=== PATIENT | female | born 1975 | race Caucasian/White ===

== ENCOUNTER 2016-12-06 20:54 | Emergency (ER) | payer SELFPAY | END 2016-12-07 00:29 | disposition home or self-care (01) | LOC: FER 20:54 | DX: J02.9 Acute pharyngitis, unspecified (principal); B37.0 Candidal stomatitis; K21.9 Gastro-esophageal reflux disease without esophagitis; F17.210 Nicotine dependence, cigarettes, uncomplicated; Z88.2 Allergy status to sulfonamides; Z88.8 Allergy status to other drugs, medicaments and biological substances; Z79.899 Other long term (current) drug therapy | CPT/HCPCS: J0561 ==

== ENCOUNTER → 2020-09-23 | Day surgery (SDC) | payer OTHER ==
[~2020-09-23] MED LIST: ALL DAY ALLERGY10 MG PO; AUGMENTIN 875-1 EACH PO; METFORMIN HCL1000 MG PO; METFORMIN HCL500 MG PO; PRILOSEC20 MG PO; SYNTHROID25 MCG PO; VITAMIN D350 MCG PO
[2020-09-23 09:23] LABS: HCG (URINE) SCREEN NEGATIVE (NEGATIVE)
[2020-09-23 09:34] LABS: HCT 40.5 % (37.0-47.0); MCH 30.9 pg (25.0-31.0); MCHC 34.6 g/dL (32.0-36.0); MCV 89.4 fL (78.0-100.0); RBC 4.53 M/uL (4.20-5.40); RDW 13.5 % (11.5-14.0); WBC 6.5 K/uL (4.0-10.5)
[2020-09-23 10:00] LABS: BUN/CREAT RATIO (CALC) 24.5 RATIO; CREATININE 0.53 mg/dL (0.51-0.95); POTASSIUM 3.9 mmol/L (3.5-5.1)
== END | disposition home or self-care (01) ==
LOC: FAS 08:48
PROVIDERS: Obstetrics & Gynecology
DX: N84.0 Polyp of corpus uteri (principal); N85.8 Other specified noninflammatory disorders of uterus; K59.00 Constipation, unspecified; K21.9 Gastro-esophageal reflux disease without esophagitis; E11.9 Type 2 diabetes mellitus without complications; F17.210 Nicotine dependence, cigarettes, uncomplicated; G47.30 Sleep apnea, unspecified; I10 Essential (primary) hypertension; E66.01 Morbid (severe) obesity due to excess calories; Z68.42 Body mass index [BMI] 45.0-49.9, adult; Z79.84 Long term (current) use of oral hypoglycemic drugs; Z79.899 Other long term (current) drug therapy; Z88.2 Allergy status to sulfonamides; Z88.8 Allergy status to other drugs, medicaments and biological substances
CPT/HCPCS: 36415; 80048; 84703; 86850; 86900; 86901; J1100; J1170; J2405; J2704; J3010; J7120

== ENCOUNTER → 2022-02-16 | Day surgery (SDC) | payer OTHER ==
[~2022-02-16] VITALS: Ht 167.6 cm; Wt 147.0 kg
[~2022-02-16] MED LIST changes: +AMARYL2 MG PO; +BUPROPION XL150 MG PO; +COZAAR100 MG PO; +CYCLOBENZAPRINE10 MG PO; +DOCUSATE SODIU100 MG PO; +GABAPENTIN 100100 MG PO; +JANUVIA50 MG PO; +OMEPRAZOLE40 MG PO; +WELLBUTRIN SR150 MG PO
[2022-02-16 07:26] LABS: HCG (URINE) SCREEN NEGATIVE (NEGATIVE)
== END | disposition home or self-care (01) ==
LOC: FAS 06:21
PROVIDERS: Anesthesiology
DX: K63.5 Polyp of colon (principal); K62.1 Rectal polyp; K29.60 Other gastritis without bleeding; K21.9 Gastro-esophageal reflux disease without esophagitis; K31.9 Disease of stomach and duodenum, unspecified; R19.7 Diarrhea, unspecified; I10 Essential (primary) hypertension; E11.9 Type 2 diabetes mellitus without complications; E03.9 Hypothyroidism, unspecified; E78.00 Pure hypercholesterolemia, unspecified; E66.01 Morbid (severe) obesity due to excess calories; F17.210 Nicotine dependence, cigarettes, uncomplicated; Z68.43 Body mass index [BMI] 50.0-59.9, adult; Z79.84 Long term (current) use of oral hypoglycemic drugs; Z79.899 Other long term (current) drug therapy; Z88.2 Allergy status to sulfonamides; Z88.8 Allergy status to other drugs, medicaments and biological substances
CPT/HCPCS: 84703; J2704; J7120

== ENCOUNTER → 2022-03-23 | Day surgery (SDC) | payer OTHER ==
[~2022-03-23] VITALS: Ht 167.6 cm; Wt 145.1 kg
[~2022-03-23] MED LIST changes: +ACETAMINOPHEN500 M1 PO; +COLACE100 MG PO; +MOTRIN600 MG PO; +ONDANSETRON ODT4 MG PO; +OXY-IR 5MG5 MG PO
[2022-03-23 08:39] LABS: HCG (URINE) SCREEN NEGATIVE (NEGATIVE)
[2022-03-23 11:18] LABS: ALBUMIN 3.2 g/dL (3.4-5.0); BILIRUBIN - TOTAL 0.4 mg/dL (0.2-1.0); CREATININE 0.79 mg/dL (0.51-0.95); GLOBULIN (CALCULATION) 4.3 g/dL; POTASSIUM 4.2 mmol/L (3.5-5.1); TOTAL PROTEIN 7.5 g/dL (6.4-8.2)
== END | disposition home or self-care (01) ==
LOC: FAS 07:26
PROVIDERS: Student in an Organized Health Care Education/Training Program
DX: K80.10 Calculus of gallbladder with chronic cholecystitis without obstruction (principal); K76.0 Fatty (change of) liver, not elsewhere classified; E66.01 Morbid (severe) obesity due to excess calories; Z68.43 Body mass index [BMI] 50.0-59.9, adult
CPT/HCPCS: 36415; 80053; 82150; 83690; 84703; 93005; J1100; J1170; J1644; J1885; J2250; J2405; J2704; J2710; J3010; J7120